=== PATIENT | female | born 1995 | race Caucasian/White ===

== ENCOUNTER 2019-02-17 16:34 | Emergency (ER) | payer OTHER ==
[2019-02-17] MEDS ORDERED: NS 0.9% 1000 ML** 1,000 ML IV ONE (16:44)
[2019-02-17] MEDS ORDERED: Ondansetron INJ* 2 MG/ML VIAL IV ONE (16:53)
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
[2019-02-17 17:26] VITALS: BP 122/84
== END 2019-02-17 16:45 | disposition short-term general hospital (02) ==
LOC: UCEAST 16:34
DX: S01.91XA Laceration without foreign body of unspecified part of head, initial encounter (principal); S09.90XA Unspecified injury of head, initial encounter; V86.59XA Driver of other special all-terrain or other off-road motor vehicle injured in nontraffic accident, initial encounter; Y93.89 Activity, other specified; Y92.9 Unspecified place or not applicable; Y99.8 Other external cause status
CPT/HCPCS: 99203; G0463; J2405